=== PATIENT | male | born 1995 | race Hispanic/Latino ===

== ENCOUNTER 2022-07-14 12:21 | Emergency (ER) | payer SELFPAY ==
[2022-07-14 14:15] VITALS: BP 126/73
[2022-07-14 14:31] VITALS: BP 127/76
[2022-07-14] MEDS ORDERED: BACTRIM DS1 TAB PO (14:38)
[2022-07-14 14:45] VITALS: BP 118/77
== END 2022-07-14 14:53 | disposition home or self-care (01) | DRG 603 ==
LOC: ED 12:21
DX: L03.115 Cellulitis of right lower limb (principal); B95.61 Methicillin susceptible Staphylococcus aureus infection as the cause of diseases classified elsewhere